=== PATIENT | male | born 1995 | race Caucasian/White ===

== ENCOUNTER 2017-11-04 22:04 | Emergency (ER) | END 2017-11-05 00:46 | disposition home or self-care (01) ==

== ENCOUNTER 2018-11-01 10:50 | Emergency (ER) | payer BC ==
[~2018-11-01] VITALS: Wt 88.6 kg
[~2018-11-01 10:50] MED LIST: DOXY100T20 PO; HYDR-4011 PO; IBUP-1542 PO
[2018-11-01 10:51] VITALS: BP 117/57; PULSE 91; RESP 20
--- NOTE | 2018-11-01 12:23 | ERD ---
ER Documentation Chief Complaint Chief Complaint wants to be checked for stds ROS All systems reviewed and are negative except as per history of present illness. Medications Home Meds Active Scripts Hydrocodone/Acetaminophen ([place] 5-325 Tablet) 1 Each Tablet, 1 EACH PO Q6, #15 TAB Prov:LOUISE BRAGG PA-C 11/05/17 Ibuprofen* (Motrin*) 600 Mg Tab, 600 MG PO Q6, #30 TAB Prov:LOUISE BRAGG PA-C 11/05/17 Doxycycline Hyclate* (Doxycycline Hyclate*) 100 Mg Tablet.dr, 100 MG PO BID for 10 Days, TAB Prov:LOUISE BRAGG PA-C 11/05/17 Allergies Allergies: Coded Allergies: No Known Allergy (Unverified , 11/01/18) PMhx/Soc History of Surgery: No Anesthesia Reaction: No Hx Neurological Disorder: No Hx Respiratory Disorders: No Hx Cardiac Disorders: No Hx Psychiatric Problems: No Hx Miscellaneous Medical Probl: Yes (testicular infection) Hx Alcohol Use: Yes Hx Substance Use: No Hx Tobacco Use: Yes Smoking Status: Former smoker Physical Exam Vitals Vital Signs Date Temp Pulse Resp B/P (MAP) Pulse Ox O2 O2 Flow FiO2 Time Delivery Rate 11/01/18 97.6 91 20 117/57 99 10:51 (77) Physical Exam Const: No acute distress Head: Atraumatic Eyes: Normal Conjunctiva ENT: Normal External Ears, Nose and Mouth. Neck: Full range of motion. No meningismus. Resp: Clear to auscultation bilaterally Cardio: Regular rate and rhythm, no murmurs Abd: Soft, non tender, non distended. Normal bowel sounds Skin: No petechiae or rashes Back: No midline or flank tenderness Ext: No cyanosis, or edema Neur: Awake and alert Psych: Normal Mood and Affect Results 24 hrs Laboratory Tests Test 11/01/18 12:10 Hepatitis B Surface Antigen NEGATIVE Hepatitis B Surface Antibody NEGATIVE Hepatitis C Antibody NEGATIVE HIV (1&2) Antibody NEGATIVE Departure Diagnosis: Primary Impression: Screen for STD (sexually transmitted disease) Condition: Fair Patient Instructions: Understanding STDs Referrals: [facility] YOU HAVE RECEIVED A MEDICAL SCREENING EXAM AND THE RESULTS INDICATE THAT YOU DO NOT HAVE A CONDITION THAT REQUIRES URGENT TREATMENT IN THE EMERGENCY DEPARTMENT. FURTHER EVALUATION AND TREATMENT OF YOUR CONDITION CAN WAIT UNTIL YOU ARE SEEN IN YOUR DOCTORS OFFICE WITHIN THE NEXT 1-2 DAYS. IT IS YOUR RESPONSIBILITY TO MAKE AN APPOINTMENT FOR FOLOW-UP CARE. IF YOU HAVE A PRIMARY DOCTOR --you should call your primary doctor and schedule an appointment IF YOU DO NOT HAVE A PRIMARY DOCTOR YOU CAN CALL OUR PHYSICIAN REFERRAL HOTLINE AT IF YOU CAN NOT AFFORD TO SEE A PHYSICIAN YOU CAN CHOSE FROM THE FOLLOWING [facility] CL[facility] [address] [facility] [address] [facility] [facility] [address] [facility] [address] [facility]. [facility] [address] [facility]. [address] Additional Instructions: Call your primary care doctor TOMORROW for an appointment during the next 1-2 days.See the doctor sooner or return here if your condition worsens before your appointment time. EMMA CARTER DO Nov 01, 2018 12:23
== END 2018-11-01 13:57 | disposition home or self-care (01) ==
LOC: FTE 10:50
DX: Z11.3 Encounter for screening for infections with a predominantly sexual mode of transmission (principal); Z87.891 Personal history of nicotine dependence
CPT/HCPCS: 36415; 86592; 86692; 86703; 86706; 86803; 87340; 87591; 99283